=== PATIENT | male | born 1975 | race Caucasian/White ===

== ENCOUNTER 2016-09-20 17:47 | Emergency (ER) | payer OTHER ==
[2016-09-20 17:54] VITALS: TEMP 97.9
--- NOTE | 2016-09-20 18:00 | CPEKG ---
Heart Rate: 45 RR Interval: 1333 P-R Interval: 192 QRSD Interval: 96 QT Interval: 456 QTC Interval: 395 P [place]: 17 QRS [place]: 16 T Wave [place]: -4 EKG Severity - ABNORMAL ECG - EKG Impression: SINUS BRADYCARDIA EKG Impression: PROBABLE LEFT VENTRICULAR HYPERTROPHY EKG Impression: BORDERLINE T ABNORMALITIES, INFERIOR LEADS Electronically Signed By: uJan Woodard 21-Sep-2016 00:23:16
[2016-09-20] MEDS ORDERED: ASPIRIN 81 MG CHEWABLE TAB ONE (18:04)
--- NOTE | 2016-09-20 18:05 | UCPHY ---
H & P Patient Type: Established HPI/ROS: CHIEF COMPLAINT: Epigastric pain. HISTORY OF PRESENT ILLNESS: The patient is a 41-year-old male with no previous cardiac or abdominal history presenting with epigastric pain for 2.5 weeks. The pain has been intermittent over that period of time but has become constant in the last 2 days. Today the pain began to radiate to his back and right axillary region. It sometimes wakes him from sleep. He denies alleviating or provoking factors. He denies nausea, vomiting, diarrhea, fever, chest pain, water brash, diaphoresis or shortness of breath, weight changes, or other complaints. He has used aspirin and Pepto-Bismol to minimal effect. No OTC pPI or antacids. No use of antiinflammatories. His father had a hiatal hernia but he denies other family abdominal history. No PE RF No CAD RF No Aortic Dissection RF. REVIEW OF SYSTEMS: Constitutional: No fever, no chills. Eyes: No diplopia. ENT: No sore throat. Cardiovascular: No chest pain, no palpitations. Respiratory: No cough, no shortness of breath, no wheezing. Gastrointestinal: As above. Genitourinary: No hematuria or frequency. Musculoskeletal: No back pain. Skin: No rashes. Neurological: No headache. 10 point ROS otherwise negative Past Medical/Surgical History: Denies. Social History: Nonsmoker. Smoking Status: Never smoked Physical Exam: General Appearance: Alert, no distress. Afebrile. Normal phonation. No respiratory distress. Eyes: Pupils equal and round no pallor or injection. No icterus ENT, Mouth: Mucous membranes moist. Pharynx not erythematous and without exudate. TM Clear. Neck: No adenopathy. Supple. No JVD. Trachea in midline. Respiratory: There are no retractions, lungs are clear to auscultation. Cardiovascular: Regular rate and rhythm, no murmur oer rub.. Abdomen: Soft and nontender, no masses, bowel sounds normal. Neurological: Ox3. No motor weakness. Sensation intact. Gait nl. Skin: Warm and dry, no rashes. Musculoskeletal: No joint swelling. Extremities: No edema. Homans sign negative. No cords. Psychiatric: Patient is oriented X 3, there is no agitation Constitutional: Initial Vital Signs Temperature (C) 36.6 C 09/20/16 17:51 Heart Rate 54 L 09/20/16 17:51 Respiratory Rate 16 09/20/16 17:51 Blood Pressure 139/79 H 09/20/16 17:51 O2 Sat (%) 96 09/20/16 17:51 O2 Delivery Mode Room Air Allergies/Adverse Reactions: No Known Allergies Allergy (Verified 07/26/15 09:00) Home Medications: Medication Instructions Recorded Acetaminophen [Tylenol 325mg (*)] 650 mg PO Q4 PRN #0 tab 07/27/15 Aspirin EC [Aspirin EC 81 mg (*)] 81 mg PO DAILY #0 tab 07/27/15 Atorvastatin Calcium [Lipitor 10 10 mg PO DAILY #0 tab 07/27/15 mg (*)] Omeprazole Magnesium [Prilosec Otc] 40 mg PO DAILY #14 tablet. 09/20/16 Medical Decision Making - Diagnostics EKG Interpretation: EKGH, interp by me. NSR, borderline LVH. ED Course/Re-evaluation: 41-year-old male presents with 2.5 weeks of epigastric pain. The pain was initially intermittent but became constant in the past 2 days. He denies alleviating or provoking factors. He has a limited family besides a hiatal hernia in his father. I have low suspicion for cardiac process in this patient. An IV was established and labs ordered. Chest x-ray, EKG ordered. Labs with: neg torponin nl LFTs' No anemia nl renal funcidton nl CBC Lipase slightly elevated, non diagnostic. Denies alcohol. I independently reviewed the patient's chest x-ray on the PACS system. My interpretation: No acute cardiopulmonary disease. Please see Imaging section for radiologist report. Differential Diagnosis: Differential diagnosis includes but is not limited to the following: ACS, myocardial infarction, pneumothorax, pulmonary embolus, aortic dissection, anxiety, muscle strain, pancreatitis, Gastroenteritis, dehydration, hepatitis, cholecystitis, appendicitis, gallbladder attack, gastritis, mesenteric adenitis , acid peptic disease. - Data Points Laboratory Results: Laboratory Results 09/20/16 18:05 09/20/16 18:05 Medications Given: Discontinued Medications Aspirin (Aspirin) 324 mg PO EDNOW ONE Stop: 09/20/16 18:11 Last Admin: 09/20/16 18:13 Dose: 324 mg Departure - Departure Disposition: Home, Routine, Self-Care Clinical Impression: Peptic disease Abdominal pain Qualifiers: Abdominal location: epigastric Qualified Code(s): R10.13 - Epigastric pain Condition: Good Instructions: Gastritis (ED) Additional Instructions: See your family physician in 7-10 days Nothing to eat 3 hours before bedtime Stop all caffeine Referrals: Eleno Sandoval MD [Primary Care Provider] - As per Instructions Prescriptions: Omeprazole Magnesium [Prilosec Otc] 40 mg PO DAILY #14 tablet.dr Garcia PQLUIS PQRS Measurement: NA Report Scribed for: Juan Woodard Report Scribed by: Shawn Saravia Date of Report: 09/20/16 Time of Report: 18:05
[2016-09-20] MEDS ORDERED: ASPIRIN 81 MG CHEWABLE TAB PO ONE (18:10)
[2016-09-20 18:17] LABS: % IMMATURE GRANULYOCYTES 0.3 % (0.0-1.1); ABSOLUTE IMMATURE GRANULOCYTES 0.02 10^3/uL (0.00-0.10); ADD DIFF? NO; ADD MORPH? NO; ADD SCAN? NO; ATYPICAL LYMPHOCYTE FLAG 0 (0-99); FRAGMENT RBC FLAG 0 (0-99); HEMATOCRIT 43.5 % (40.0-51.0); HEMOGLOBIN 15.5 g/dL (13.7-17.5); LEFT SHIFT FLG 0 (0-99); LIPEMIA HEMOLYSIS FLAG 90 (0-99); MEAN CELL HEMOGLOBIN 30.5 pg (27.9-34.1); MEAN CELL HEMOGLOBIN CONCENTR. 35.6 g/dL (32.4-36.7); MEAN CELL VOLUME 85.6 fL (81.5-99.8); MEAN PLATELET VOLUME 9.6 fL (8.7-11.7); PLATELET CLUMPS FLAG 10 (0-99); PLATELET COUNT 245 10^3/uL (150-400); RED BLOOD CELL COUNT 5.08 10^6/uL (4.40-6.38); RED CELL DISTRIBUTION WIDTH 11.6 % (11.5-15.2)
[2016-09-20 18:38] LABS: ANION GAP 14 mEq/L (8-16); CALCIUM 9.4 mg/dL (8.5-10.4); CARBON DIOXIDE 25 mEq/l (22-31); CHLORIDE 100 mEq/L (97-110); GLOMERULAR FILTRATION RATE > 60; GLUCOSE 101 mg/dL (70-100); POTASSIUM 4.2 mEq/L (3.5-5.2); SODIUM 139 mEq/L (134-144)
[2016-09-20 18:51] LABS: TROPONIN I < 0.012 ng/mL (0-0.034)
[2016-09-20 18:58] LABS: ALBUMIN 3.9 g/dL (3.5-5.0); BILIRUBIN,TOTAL 0.7 mg/dL (0.1-1.4); BILIRUBIN-CONJUGATED 0.3 mg/dL (0.0-0.5); BILIRUBIN-UNCONJUGATED 0.4 mg/dL (0.0-1.1); TOTAL PROTEIN 6.7 g/dL (6.3-8.2)
[2016-09-20 20:09] VITALS: BP 151/88; PULSE 42; RESP 15; O2SAT 95
== END 2016-09-20 20:05 | disposition home or self-care (01) ==
LOC: CED 17:47
DX: R10.13 Epigastric pain (principal)
CPT/HCPCS: 71020-PO; 80048-PO; 80076-PO; 83690-PO; 84484-PO; 85025-PO; G0463-PO

== ENCOUNTER 2017-06-09 20:13 | Observation (INO) | payer OTHER ==
--- NOTE | 2017-06-09 20:20 | CPEKG ---
Heart Rate: 38 RR Interval: 1579 P-R Interval: 220 QRSD Interval: 110 QT Interval: 476 QTC Interval: 379 P [place]: -19 QRS [place]: 23 T Wave [place]: 11 EKG Severity - ABNORMAL ECG - EKG Impression: SINUS BRADYCARDIA EKG Impression: FIRST DEGREE AV BLOCK EKG Impression: NONSPECIFIC INTRAVENTRICULAR CONDUCTION DELAY EKG Impression: PROBABLE LEFT VENTRICULAR HYPERTROPHY Electronically Signed By: Kemi Henao 09-Jun-2017 20:41:44
[2017-06-09] MEDS ORDERED: ASPIRIN 81 MG CHEWABLE TAB PO ONE (20:26)
--- NOTE | 2017-06-09 20:35 | EDPHY ---
H & P Time Seen by Provider: 06/09/17 20:15 HPI/ROS: HPI Chest discomfort. 42-year-old male by private vehicle. This patient was at a judo practice with his kids. He was not participating. He was watching the practice. This was at approximately 5:00 p.m. to 5:30 p.m.. He reports while he was sitting watching the practice he developed a sensation of substernal mid chest pressure. He reports that it came and went in waves of intensity. He reports that he got up and walked around outside to see if it would get worse or get better. There was no change with moderate physical exertion. He reports that as he was driving to an urgent care the discomfort resolved. He was seen at the urgent care briefly where they did an EKG which was abnormal and he was sent to the emergency department from there. He denies any chest discomfort at this time. He has not had any associated shortness of breath, nausea or vomiting or diaphoresis. Denies cough. He has a concerning family history. Both his mother and father in their 60s secondary to coronary artery disease. His father had his 1st heart attack at the age of 52. He is a nonsmoker. He was prescribed a statin medication by his primary care physician Dr. Jones. He tells me though this was done prophylactically and not because he had significant hypercholesterolemia. He is no longer on this medication. He takes aspirin only. Denies any history of diabetes, hypertension. ROS: Constitutional: No fever, no chills. No weakness. Eyes: No discharge. No changes in vision. ENT: No sore throat. No nasal congestion or rhinorrhea. Respiratory: No cough. No shortness of breath. Cardiac: As above, no palpitations. Gastrointestinal: No abdominal pain, no vomiting, no diarrhea. Genitourinary: No hematuria. No dysuria or increased frequency with urination. Musculoskeletal: No back pain. No neck pain. No myalgias or arthralgias. Skin: No rashes. Neurological: No headache. No focal weakness or altered sensation. Past medical history: As above. Social history: Nonsmoker. Drinks alcohol on the weekends 3-4 beers a night. Does not drink alcohol during the week. No methamphetamine, methamphetamine or other street drugs. , has children. Physical Exam: General Appearance: Alert, no distress. Muscular and appears fit. This patient is responding to questions appropriately and in full sentences. This patient appears well-hydrated and well-nourished. Eyes: Pupils equal and round no pallor or injection. No lid edema, erythema or injection. Respiratory: There are no retractions, lungs are clear to auscultation with good air movement bilaterally. Cardiovascular: Regular rate and rhythm. Bradycardic. No murmur appreciated. Gastrointestinal: Abdomen is soft and nontender, no masses, bowel sounds normal. No focal tenderness at McBurney's point. No Navarrete sign. Neurological: Motor sensory function is grossly intact. Cranial nerves are normal. Gait is normal. Skin: Warm and dry, no rashes. Musculoskeletal: Neck is supple and nontender. Extremities are symmetrical. All joints range without pain or impingement. Psychiatric: No agitation. No depression. Database: EKG: EKG time is 8:19 p.m.; EKG shows a narrow complex normal sinus bradycardia with a ventricular rate of 38. 1st degree AV block noted. Nonspecific intraventricular conduction delay noted. Probable left ventricular hypertrophy. The QRS, QT intervals are within normal limits. T-wave inversion noted in lead 3. There are no ST-T wave changes indicative of ischemic or injury pattern. No evidence of right heart strain. This EKG was compared to a prior EKG from September of this year. There are no significant changes. Interpreted by me. Imaging: Chest x-ray AP portable; the cardiac mediastinal silhouette is unremarkable. No evidence of infiltrate or pneumothorax. No acute cardiopulmonary disease process noted. Interpreted by me. Procedures: Emergency department course: IV placed. He was placed on a director cardiac. He was given 324 mg of chewed aspirin. Vital signs reviewed. He is moderately hypertensive. Bradycardia noted on EKG. Afebrile. 9:05 p.m., patient re-evaluated. Resting comfortably at this time. He denies any chest discomfort or shortness of breath. Results of his diagnostic workup in the emergency department discussed with him. Given his family history as well as the abnormalities on his EKG I advised observation admission for serial troponins and echocardiogram and provocative testing. He endorses this plan. Hospitalist nile. 9:20 p.m., spoke with on-call hospitalist Dr. Guillen, case discussed in detail. Patient accepted for admission, telemetry observation. Discussed admission plan with the patient. He declines going by ambulance. He will go by private vehicle. In my professional opinion the patient understands the risks of going by private vehicle verses ambulance. The patient competently engages in shared decision making. They demonstrate capacitance to make decisions. The patient was discharged in stable condition to [facility]. Differential Diagnosis: The differential diagnosis on this patient includes but is not limited to myocardial ischemia, esophageal spasm, anxiety reaction, musculoskeletal chest pain. Pulmonary embolism, aortic dissection, myocarditis, pericarditis, myocardial infarction unlikely. This represents a partial list of diagnoses considered. These considerations are based on history, physical exam, past history, reassessment and diagnostic testing. Smoking Status: Never smoked Constitutional: Initial Vital Signs Heart Rate 43 L 06/09/17 20:30 Respiratory Rate 16 06/09/17 20:30 Blood Pressure 143/98 H 06/09/17 20:30 O2 Sat (%) 94 06/09/17 20:30 O2 Delivery Mode Room Air Allergies/Adverse Reactions: No Known Allergies Allergy (Verified 06/09/17 20:37) Home Medications: Medication Instructions Recorded Acetaminophen [Tylenol 325mg (*)] 650 mg PO Q4 PRN #0 tab 07/27/15 Aspirin EC [Aspirin EC 81 mg (*)] 81 mg PO DAILY #0 tab 07/27/15 Medical Decision Making - Diagnostics Imaging Results: Imaging Impressions Chest X-Ray 06/09/17 20:27 Impression: 1. No acute pulmonary disease. 2. Consider chest two views when the patient's medical condition permits. - Data Points Laboratory Results: Laboratory Results 06/09/17 20:30 06/09/17 20:30 06/09/17 06/09/17 06/09/17 20:30 20:30 20:30 WBC 6.52 10^3/uL 10^3/uL (3.80-9.50) RBC 5.39 10^6/uL 10^6/uL (4.40-6.38) Hgb 16.4 g/dL g/dL (13.7-17.5) Hct 47.0 % % (40.0-51.0) MCV 87.2 fL fL (81.5-99.8) MCH 30.4 pg pg (27.9-34.1) MCHC 34.9 g/dL g/dL (32.4-36.7) RDW 12.1 % % (11.5-15.2) Plt Count 230 10^3/uL 10^3/uL (150-400) MPV 9.1 fL fL (8.7-11.7) Neut % (Auto) 53.0 % % (39.3-74.2) Lymph % (Auto) 33.6 % % (15.0-45.0) Josephine % (Auto) 11.3 % % (4.5-13.0) Eos % (Auto) 1.1 % % (0.6-7.6) Baso % (Auto) 0.5 % % (0.3-1.7) Nucleat RBC Rel Count 0.0 % % (0.0-0.2) Absolute Neuts (auto) 3.46 10^3/uL 10^3/uL (1.70-6.50) Absolute Lymphs (auto) 2.19 10^3/uL 10^3/uL (1.00-3.00) Absolute Monos (auto) 0.74 10^3/uL 10^3/uL (0.30-0.80) Absolute Eos (auto) 0.07 10^3/uL 10^3/uL (0.03-0.40) Absolute Basos (auto) 0.03 10^3/uL 10^3/uL (0.02-0.10) Absolute Nucleated RBC 0.00 10^3/uL 10^3/uL (0-0.01) Immature Gran % 0.5 % % (0.0-1.1) Immature Gran # 0.03 10^3/uL 10^3/uL (0.00-0.10) PT 12.6 SEC SEC (12.0-15.0) INR 0.95 (0.83-1.16) APTT 27.3 SEC SEC (23.0-38.0) Sodium 142 mEq/L mEq/L (134-144) Potassium 4.3 mEq/L mEq/L (3.5-5.2) Chloride 99 mEq/L mEq/L (97-110) Carbon Dioxide 28 mEq/l mEq/l (22-31) Anion Gap 15 mEq/L mEq/L (8-16) BUN 17 mg/dL mg/dL (7-23) Creatinine 1.0 mg/dL mg/dL (0.7-1.3) Estimated GFR > 60 Glucose 85 mg/dL mg/dL (70-100) Calcium 10.0 mg/dL mg/dL (8.5-10.4) Total Bilirubin 0.7 mg/dL mg/dL (0.1-1.4) Conjugated Bilirubin 0.1 mg/dL mg/dL (0.0-0.5) Unconjugated Bilirubin 0.6 mg/dL mg/dL (0.0-1.1) AST 31 IU/L IU/L (17-59) ALT 38 IU/L IU/L (21-72) Alkaline Phosphatase 52 IU/L IU/L (38-126) Creatine Kinase 150 IU/L IU/L (0-224) CK-MB (CK-2) Fraction 2.27 ng/mL ng/mL (0.00-4.55) Troponin I < 0.012 ng/mL ng/mL (0.000-0.034) Total Protein 7.5 g/dL g/dL (6.3-8.2) Albumin 4.3 g/dL g/dL (3.5-5.0) Lipase 134 IU/L IU/L (23-300) Medications Given: Discontinued Medications Aspirin (Aspirin) 324 mg PO EDNOW ONE Stop: 06/09/17 20:27 Last Admin: 06/09/17 20:40 Dose: 162 mg Departure - Departure Disposition: [facility] Inpatient Acute Clinical Impression: Chest pain, Bradycardia
[2017-06-09 20:36] LABS: PLATELET COUNT 230 10^3/uL (150-400)
[2017-06-09 20:46] LABS: INR 0.95 (0.83-1.16); PROTIME(PATIENT) 12.6 SEC (12.0-15.0)
[2017-06-09 20:49] LABS: CREATINE KINASE 150 IU/L (0-224)
[2017-06-09] MEDS ORDERED: ONDANSETRON 4 MG/2 ML VIAL IVP PRN (22:52)
[2017-06-09] MEDS ORDERED: HYDROCODONE/APAP 5/325 TAB PO PRN (22:52)
[2017-06-09] MEDS ORDERED: ONDANSETRON DISINTEGRATING 4 MG TAB PO PRN (22:52)
[2017-06-09] MEDS ORDERED: ACETAMINOPHEN 325 MG TAB PO PRN (22:52)
[2017-06-09] MEDS ORDERED: diphenhydrAMINE 25 MG CAP PO PRN (22:52)
[2017-06-09] MEDS ORDERED: LORazepam 0.5 MG TAB PO PRN (22:52)
[2017-06-09] MEDS ORDERED: NITROGLYCERIN 0.4 MG BTL SL PRN (22:57)
--- NOTE | 2017-06-09 23:28 | PDGENHP ---
History and Physical - Chief Complaint chest pain - History of Present Illness Source-patient provides history appears reliable. Case discussed accepting provider and EMR reviewed. HPI-this is a pleasant 42-year-old gentleman with past medical history significant for a baseline bradycardia and otherwise healthy active gentleman who presents to the emergency department at [facility] today after patient developed substernal chest mid chest pressure. Onset was approximately 5:30 p.m.. Patient was standing watching his children at one of their sporting activities. When his symptoms came on. Patient denies any radiating pain. He denies any associated nausea or vomiting. Patient denies any reflux symptoms. He denies any associated diaphoresis or shortness of breath. Patient without any lower extremity edema, orthopnea, PND. Patient went outside to walk around and see if his discomfort would resolve on its own. Patient drove home and the pain continued for approximately 40 min. He took 2 baby aspirins and then headed to the ED. Patient's family history is significant for coronary artery disease. Mother age 60s and father with 1st [place] age 52 age 60. Patient reports that it has been several years since he has had a stress test. Overall he is a very active gentleman he does not smoke. He ran 6 miles earlier in the day and does so on a regular basis. Patient's chest pain resolved prior to arriving at urgent care center. He had an initial evaluation that was significant for abnormal EKG and patient was referred to [facility] ED. The patient has not had any recurrence of his chest pain. History Information - Allergies/Home Medication List Allergies/Adverse Reactions: No Known Allergies Allergy (Verified 06/09/17 20:37) I have personally reviewed and updated: family history, medical history, social history, surgical history - Past Medical History Additional medical history: Sinus bradycardia with history of first-degree AV block. - Surgical History Additional surgical history: Tonsillectomy and adenoidectomy - Family History Additional family history: Mother-CAD/[place], age 60s. Father-CAD first mi age 52, age 60 - Social History Smoking Status: Never smoked Alcohol Use: Occasionally (Patient drinks 2-4 beers/day on weekend days, not during the week. He denies any binge type drinking) Drug Use: None Additional social history: lives with and children. Course status. Patient desires his Deneen to act as proxy if needed. Review of Systems Review of Systems: ROS: 10pt was reviewed & negative except for what was stated in HPI & below Physical Exam Physical Exam: Selected Entries 06/09/17 20:30 Blood Pressure Automatic Method Heart Rate 43 L Respiratory 16 Rate O2 Sat (%) 94 Blood Pressure 143/98 H Mean Arterial 113 H Pressure (MAP) O2 Delivery Room Air Mode Cardiac Rhythm Sinus Bradycardia Temp Pulse Resp BP Pulse Ox 36.5 C 40 L 16 130/84 H 94 06/09/17 22:05 06/09/17 22:05 06/09/17 22:05 06/09/17 22:05 06/09/17 22:05 Constitutional: no apparent distress, appears nourished, not in pain Eyes: PERRL, anicteric sclera, EOMI, No scleral injection Ears, Nose, Mouth, Throat: moist mucous membranes, other (No nasal discharge) Cardiovascular: no murmur, rub, or gallop, pulses symmetric bilaterally, bradycardia (Regular rhythm) Peripheral Pulses: 2+: dorsalis-pedis (R), dorsalis-pedis (L) Respiratory: no respiratory distress, no rales or rhonchi, clear to auscultation Gastrointestinal: normoactive bowel sounds, soft, non-tender abdomen, no palpable masses, No rebound, No distension Genitourinary: no bladder tenderness, No thompson in urethra Skin: warm, normal color, No rash Musculoskeletal: full muscle strength, No joint tenderness, No generalized weakness Neurologic: AAOx3, other (Nonfocal exam. Patient moves all extremities. Sits up independently.) Psychiatric: interacting appropriately, not anxious, not encephalopathic, thought process linear, other (Pop process, content and questions appropriate.) Lab Data & Imaging Review 06/09/17 20:30 06/09/17 20:30 WBC 6.52 10^3/uL (3.80-9.50) 06/09/17 20:30 RBC 5.39 10^6/uL (4.40-6.38) 06/09/17 20:30 Hgb 16.4 g/dL (13.7-17.5) 06/09/17 20:30 Hct 47.0 % (40.0-51.0) 06/09/17 20:30 MCV 87.2 fL (81.5-99.8) 06/09/17 20:30 MCH 30.4 pg (27.9-34.1) 06/09/17 20: MCHC 34.9 g/dL (32.4-36.7) 06/09/17 20: RDW 12.1 % (11.5-15.2) 06/09/17 20:30 Plt Count 230 10^3/uL (150-400) 06/09/17 20: MPV 9.1 fL (8.7-11.7) 06/09/17 20:30 Neut % (Auto) 53.0 % (39.3-74.2) 06/09/17 20: Lymph % (Auto) 33.6 % (15.0-45.0) 06/09/17 20: Wythe % (Auto) 11.3 % (4.5-13.0) 06/09/17 20:30 Eos % (Auto) 1.1 % (0.6-7.6) 06/09/17 20: Baso % (Auto) 0.5 % (0.3-1.7) 06/09/17 20: Nucleat RBC Rel Count 0.0 % (0.0-0.2) 06/09/17 20: Absolute Neuts (auto) 3.46 10^3/uL (1.70-6.50) 06/09/17 20:30 Absolute Lymphs (auto) 2.19 10^3/uL (1.00-3.00) 06/09/17 20:30 Absolute Monos (auto) 0.74 10^3/uL (0.30-0.80) 06/09/17 20:30 Absolute Eos (auto) 0.07 10^3/uL (0.03-0.40) 06/09/17 20: Absolute Basos (auto) 0.03 10^3/uL (0.02-0.10) 06/09/17 20: Absolute Nucleated RBC 0.00 10^3/uL (0-0.01) 06/09/17 20: Immature Gran % 0.5 % (0.0-1.1) 06/09/17 20: Immature Gran # 0.03 10^3/uL (0.00-0.10) 06/09/17 20:30 PT 12.6 SEC (12.0-15.0) 06/09/17 20:30 INR 0.95 (0.83-1.16) 06/09/17 20:30 APTT 27.3 SEC (23.0-38.0) 06/09/17 20:30 Sodium 142 mEq/L (134-144) 06/09/17 20:30 Potassium 4.3 mEq/L (3.5-5.2) 06/09/17 20:30 Chloride 99 mEq/L (97-110) 06/09/17 20:30 Carbon Dioxide 28 mEq/l (22-31) 06/09/17 20:30 Anion Gap 15 mEq/L (8-16) 06/09/17 20:30 BUN 17 mg/dL (7-23) 06/09/17 20:30 Creatinine 1.0 mg/dL (0.7-1.3) 06/09/17 20:30 Estimated GFR > 60 06/09/17 20:30 Glucose 85 mg/dL (70-100) 06/09/17 20:30 Calcium 10.0 mg/dL (8.5-10.4) 06/09/17 20:30 Total Bilirubin 0.7 mg/dL (0.1-1.4) 06/09/17 20:30 Conjugated Bilirubin 0.1 mg/dL (0.0-0.5) 06/09/17 20:30 Unconjugated Bilirubin 0.6 mg/dL (0.0-1.1) 06/09/17 20:30 AST 31 IU/L (17-59) 06/09/17 20:30 ALT 38 IU/L (21-72) 06/09/17 20:30 Alkaline Phosphatase 52 IU/L (38-126) 06/09/17 20:30 Creatine Kinase 150 IU/L (0-224) 06/09/17 20:30 CK-MB (CK-2) Fraction 2.27 ng/mL (0.00-4.55) 06/09/17 20:30 Troponin I < 0.012 ng/mL (0.000-0.034) 06/09/17 20:30 Total Protein 7.5 g/dL (6.3-8.2) 06/09/17 20:30 Albumin 4.3 g/dL (3.5-5.0) 06/09/17 20:30 Lipase 134 IU/L (23-300) 06/09/17 20:30 Imaging Review: Chest, One View Portable at 2034 hours History: Chest Pain . Comparison: September 2016 Findings: Cardiac silhouette is normal in size. No pneumonia, congestive heart failure, pleural effusion, or pneumothorax. Impression: 1. No acute pulmonary disease. 2. Consider chest two views when the patient's medical condition permits. Visualized and Interpreted EKG results: Yes EKG additional interpertation: Sinus bradycardia in the 40s. Less than [address] elevations in the and for all lateral leads. T-wave inversion 3. This is not significantly different from EKG obtained 09/2016 and 07/2015 seen. Assessment & Plan Assessment: Pleasant 42 yo M with hx of baseline bradycardia who presnts with chest pain. Chest pain (Acute) - differential diagnosis including angina versus bradycardia versus hypertensive urgency versus reflux versus other noncardiac chest pain. Patient without significant personal risk factors. He does have a significant family history however with both parents having CAD. Will plan to trend cardiac enzymes, repeat EKG in the morning and consider further evaluation as per the hospitalist. Bradycardia (Acute) - patient resting heart rate has been documented as being in the 40s likely secondary to increased vagal tone in this athletic gentleman. First-degree AV block is noted and stable on EKG. Blood pressures at this time have decreased closer to patient's normal at home. Will plan to monitor overnight and repeat EKG in the morning. Elevated blood pressures without history of hypertension - blood pressures were initially elevated upon arrival to the ED in again to the PCU floor. They are now closer to patient's reported baseline of less than 130/80. Will continue to monitor closely. Patient reports that he adheres to a very low salt diet and is highly active on a regular basis. Day team to reassess and consider initiation of antihypertensives. FEN - SLIV. Electrolyte replacement prn. npo after midnight. PPX - SCDs. no anticoagulation 2/2 likely short hospital stay and low risk. COR - FULL. Deneen to act as proxy if needed. Dispo - Admit to observation at this time on PCU for close cardiac monitoring.
[2017-06-10] MEDS ORDERED: MULTIVITAMINS 1 EACH TAB PO SCH (09:15)
[2017-06-10] MEDS ORDERED: ASPIRIN EC 81 MG TAB PO SCH (09:15)
[2017-06-10] MEDS ORDERED: OMEGA-3 FATTY ACIDS 1,000 MG CAP PO SCH (09:15)
[2017-06-10] MEDS ORDERED: GLUCOSAMINE SULF 500 MG CAP PO SCH (09:15)
--- NOTE | 2017-06-10 10:03 | ASMTCASEMG ---
Living Arrangements What is your living Answers: With Spouse arrangement? Who do you live with? Type Of Residence What kind of residence do Answers: House you live in? Discharge Plan Comments Coordination Status Comments Notes: CM spoke w/ DARRION Edwards regarding d/c POC. Pt is a 42 y/o man admitted for CP and bradycardia. Pt will most likely d/c independent when medically stable w/ supportive . No therapies ordered at this time. CM available for changes. Plan: Independent Date Signed: 06/10/2017 10:02 AM Electronically Signed By:CHARLOTTE Rubio
--- NOTE | 2017-06-10 12:46 | CPR ---
[f rep st] NONINVASIVE CARDIAC PROCEDURE REPORT DATE OF PROCEDURE: 06/10/2017 PROCEDURE: Exercise nuclear stress test. INDICATION: The patient is a 42-year-old male with a strong family history of premature coronary dis ease, who presented to the hospital with an episode of chest pain. He was watching his kids play, wh en he developed sudden onset of chest pressure, which was intermittent over the next 45 minutes. He did go for a run after his discomfort began, and he denied any shortness of breath associated with th is. He is a very active anthony and denies any exertional chest discomfort or dyspnea on exertion prior to his incident of chest pain yesterday. He denies any nausea, vomiting, or diaphoresis associated w ith the chest pain. He has a strong family history of premature coronary artery disease. His father had his first myocardial infarction in his 40s. He also had an uncle with a cardiac event in his 40 s. He denies any history of hypertension, hyperlipidemia, diabetes, or tobacco use. DESCRIPTION OF PROCEDURE: Consent was obtained, and the patient was placed on continuous telemetry. His resting EKG revealed sinus bradycardia with a heart rate of 47. He had diffuse upsloping ST dep ression, consistent with a repolarization abnormality. The patient exercised on the treadmill for 14 minutes without any associated symptoms. He remained i n normal sinus rhythm without any ST-T wave changes to suggest ischemia. His blood pressure at rest was 110/74 and increased appropriately, peaking at 170/70. His blood pressure returned to baseline 5 minutes into recovery. The patient was able to reach his target heart rate, with his heart rate pea moraima at 154 beats per minute. PLAN: Normal exercise treadmill test. Await nuclear images. The patient is concerned about his ove rall cardiovascular risk. We did discuss possible EBCT scan and repeat fasting lipid profile with saurabh morris with Cardiology. /[id number]/MODL
[2017-06-10 14:00] VITALS: O2SAT 92
[2017-06-10 15:20] VITALS: BP 149/78; PULSE 54; RESP 13; TEMP 98.1
--- NOTE | 2017-06-10 16:33 | ASDISCHSUM ---
Discharge Information Plan Status:Home with No Needs Medically Cleared to Leave:06/09/2017 Discharge Date:06/10/2017 03:40 PM CM D/C Disposition: ADT D/C Disposition:Home, Routine, Self-Care Projected Discharge Date:06/10/2017 12:00 AM Transportation at D/C: Discharge Delay Reason: Follow-Up Date:06/10/2017 12:00 AM Discharge Slot: Final Diagnosis: Placement Information Patient Contact Information Contact Name:MICHAEL Relationship: Address:[address] City:[place] [facility] Phone: [facility]/Zip Code:[place] [address] Email: Financial Information Financial Class:HMO and PPO Plans Primary Plan Desc:[employer] Primary Plan Number:[id number] Secondary Plan Desc: Secondary Plan Number: Assessment Information [facility] Initial CM Assessment Living Arrangements What is your living Answers: With Spouse arrangement? Who do you live with? Type Of Residence What kind of residence do Answers: House you live in? Discharge Plan Comments Coordination Status Comments Notes: CM spoke w/ DARRION Edwards regarding d/c POC. Pt is a 42 y/o man admitted for CP and bradycardia. Pt will most likely d/c independent when medically stable w/ supportive . No therapies ordered at this time. CM available for changes. Plan: Independent Date Signed: 06/10/2017 10:02 AM Electronically Signed By:CHARLOTTE Rubio Intervention Information
--- NOTE | 2017-06-10 19:53 | PDDCSUM ---
Discharge Summary Discharge Summary: DISCHARGE SUMMARY FOLLOW-UP ITEMS: Outpatient ambulatory blood pressure monitoring DATE OF ADMISSION: 06/09/2017 DATE OF DISCHARGE: 06/10/2017 DISCHARGE DIAGNOSES: 1. Acute chest pain 2. Suspected GERD 3. Elevated blood pressure 4. Chronic sinus bradycardia CONSULTATIONS: None PROCEDURES / IMAGING: Nuclear medicine stress test demonstrating no evidence of inducible myocardial ischemia CHIEF COMPLAINT: Acute chest pain SUBJECTIVE: Patient is chest pain-free at time of discharge PHYSICAL EXAM ON DISCHARGE: Systolic blood pressure is 110-150, heart rate 40-50, afebrile overnight, satting on room air, alert awake oriented x3, no apparent distress, pain level 0 /10 LABS ON DISCHARGE: D-dimer unremarkable, CBC normal, complete metabolic profile unremarkable HOSPITAL COURSE BY PROBLEM: The patient presented for acute chest pain and was ruled out for acute coronary syndrome with negative troponin, no ischemic changes on EKG, and ruled out for obstructive coronary disease with a normal nuclear medicine stress test. She was ruled out for pulmonary embolism with a normal D-dimer. He had no evidence of focal airspace disease with a normal chest x-ray. Exact etiology of his chest discomfort is unclear, but it is possible that it is GERD. Given the patient's chest discomfort is very seldom, he will not initiate on an H2 [place] or proton pump inhibitor at this time, but he may consider this in the future if he experiences recurrence. The patient I discussed at length cardiac risk stratification given his family history of coronary artery disease. I advised him that it is reasonable to perform coronary imaging in the future if he desires an alternative means of cardiac risk stratification, but I would not recommend this modality at the present time given that he just underwent a nuclear medicine stress test and the predicted value of these tests is very similar. What I did recommend is that he arrange outpatient ambulatory blood pressure monitoring through his primary care provider office or receive a referral to [facility] in order to accomplish this. The patient has been told that his elevated blood pressure in the past, and I think it may be useful for the patient to understand whether he indeed has a diagnosis of hypertension, so that he can initiate a low-dose antihypertensive to reduce his overall cardiovascular risk. DISCHARGE MEDICATIONS: Please see official discharge medication reconciliation sheet in chart , continue home medications, no additional once prescribed. DISCHARGE INSTRUCTIONS: Please follow up with primary care provider and consider outpatient ambulatory blood pressure monitoring.
== END 2017-06-10 15:40 | disposition home or self-care (01) ==
LOC: CED 20:13 → CEDHOLD 21:18 → F2W 22:06
PROVIDERS: ADMIT Internal Medicine; ATTEND Internal Medicine
DX: R07.89 Other chest pain (principal); R03.0 Elevated blood-pressure reading, without diagnosis of hypertension; R00.1 Bradycardia, unspecified
CPT/HCPCS: 71045; 78452; 93005; 93017; 99285; A9500; G0378; 80048-PO; 80076-PO; 82550-PO; 82553-PO; 83690-PO; 84484-PO; 85025-PO; 85610-PO; 85730-PO